=== PATIENT | female | born 1990 | race African-American/Black ===

== ENCOUNTER 2017-01-28 22:30 | Emergency (ER) | payer OTHER ==
--- NOTE | 2017-01-28 22:43 | DR.GENAD ---
HPI - Complaint/Symptoms Chief Complaint Doctors Comments: Patient states that she had similar pain in the past and diagnosie with gallstones recommended surigal removal but decline. Today pain was similar, severe, sharp, 10/10 associated with nausea. She denies dysuria, constipation or abdominal pain. Chief Complaint:: PT STATES THAT SHE BEGAN HAVING SEVERE RUQ PAIN THAT RADIATED TO HER BACK THIS AFTERNOON. GETTING WORSE. Self Treatment fo Chief Complaint: GIVEN 50 OF DEMEROL IM VIA EMS - Source History Provided: Patient - Mode of Arrival Mode of Arrival: EMS - Timing Onset of Chief Complaint: 01/28/17 PMH - PMH Past Medical History: Yes Past Medical History: Anemia Past Surgical History: Yes Surgical History: - Family History History of Family Medical Conditions: Yes Family Medical History: Hypertension - infectious screening Have you traveled outside the country in the last 6 months?: No ROS - Review of Systems Eyes: No Symptoms Reported ENTM: No Symptoms Reported, Hearing Loss Cardiovascular: No Symptoms Reported Gastrointestinal/Abdominal: No Symptoms Reported Genitourinary: No Symptoms Reported Neurological: No Symptoms Reported Musculoskeletal: No Symptoms Reported Integumentary: No Symptoms Reported Hematologic/Lymphatic: No Symptoms Reported Endocrine: No Symptoms Reported Psychiatric: No Symptoms Reported All Other Systems: Reviewed and Negative PE - Vital Signs Vitals: Temperature 97.9 F Pulse Rate 74 Respiratory Rate 18 Blood Pressure 128/71 O2 Sat by Pulse Oximetry 100 - General Limitations: No Limitations General Appearance: Alert, In No Apparent Distress - Head Head Exam: Normal Inspection, Atraumatic - Eyes Eye exam: Normal Appearance, PERRL, EOMI - ENT ENT Exam: Normal Exam, Normal Oropharynx External Ear Exam: Normal External Inspection TM/Canal Exam: Bilateral Normal Nose Exam: Normal Nose Exam Mouth Exam: Normal Inspection Throat Exam: Normal Inspection - Neck Neck Exam: Normal Inspection, Full ROM - Chest Chest Inspection: Normal Inspection, Symmetric Chest Wall Rise - Respiratory Respiratory Exam: Normal Lung Sounds Bilat Respiratory Exam: Bilateral Clear to Auscultation - Cardiovascular Cardiovascular Exam: Regular Rate, Normal Rhythm - Abdominal Exam Abdominal Exam: Normal Inspection, Normal Bowel Sounds Abdominal Tenderness: negative: RUQ, RLQ, LUQ, LLQ, Epigastrium, Suprapubic, Diffuse, Mild, Moderate, Severe, Other - Extremities Extremities Exam: Normal Inspection, Full ROM - Back Back Exam: Normal Inspection, Full ROM - Neurologic Neurological Exam: Alert, Oriented X3, CN II-XII Intact - Psychiatric Psychiatric Exam: Normal Affect - Skin Skin Exam: Warm, Dry, Normal Color Course - Reevaluation 1st: Improved ROR - Labs Reviewed Result Diagrams: 01/28/17 23:35 01/28/17 23:35 Laboratory: WBC 17.5 X10^3/uL (3.6-10.0) H 01/28/17 23:35 RBC 4.34 X10^6/uL (3.5-5.4) 01/28/17 23:35 Hgb 7.8 g/dL (12.0-16.0) L 01/28/17 23:35 Hct 26.3 % (36.0-47.0) L 01/28/17 23:35 MCV 60.5 fL (80.0-100.0) L 01/28/17 23:35 MCH 18.0 pg (27.0-34.0) L 01/28/17 23:35 MCHC 29.7 g/dL (33.0-35.0) L 01/28/17 23:35 RDW 17.9 % (11.6-16.5) H 01/28/17 23:35 Plt Count 251 X10^3/uL (150.0-450.0) 01/28/17 23:35 Plt Count Comment Adequate (ADEQUATE) 01/28/17 23:35 MPV 8.8 fL (7.4-11.0) 01/28/17 23:35 Neut % 81.4 % (42.0-75.0) H 01/28/17 23:35 Lymph % 12.1 % (21.0-51.0) L 01/28/17 23:35 Guthrie % 5.7 % (0.0-13.0) 01/28/17 23:35 Eos % 0.2 % (0.9-2.9) L 01/28/17 23:35 Baso % 0.6 % (0.2-1.0) 01/28/17 23:35 Neut # 14.3 x10^3/uL (2.2-4.8) H 01/28/17 23:35 Lymph # 2.1 X10^3/uL (1.3-2.9) 01/28/17 23:35 Guthrie # 1.0 x10^3/uL (0.3-0.8) H 01/28/17 23:35 Eos # 0.0 x10^3/uL (0.0-0.2) 01/28/17 23:35 Baso # 0.1 X10^3/uL (0.0-0.1) 01/28/17 23:35 Absolute Nucleated RBC 0.0 /100WBC 01/28/17 23:35 Plt Morphology Comment Normal (NORMAL) 01/28/17 23:35 RBC Morphology Abnormal (NORMAL) A 01/28/17 23:35 Hypochromasia 3+ A 01/28/17 23:35 Anisocytosis Slight A 01/28/17 23:35 Microcytosis 2+ A 01/28/17 23:35 Sodium 140 mmol/L (136-145) 01/28/17 23:35 Corrected Sodium TNP 01/28/17 23:35 Potassium 3.7 mmol/L (3.5-5.1) 01/28/17 23:35 Chloride 104 mmol/L (98-107) 01/28/17 23:35 Carbon Dioxide 26.8 mmol/L (21-32) 01/28/17 23:35 BUN 12 mg/dL (7-18) 01/28/17 23:35 Creatinine 0.74 mg/dL (0.55-1.02) 01/28/17 23:35 Est GFR (MDRD) Af Amer > 60 (>60) 01/28/17 23:35 Est GFR (MDRD) Non-Af > 60 (>60) 01/28/17 23:35 Glucose 79 mg/dL (65-99) 01/28/17 23:35 Calcium 8.8 mg/dL (8.5-10.1) 01/28/17 23:35 - XRAY XRAY Interpreted by: Radiologist (Given the limitations of lack of IV contrast administration the liever, spleen,pancreas, and adrenal glands are unremarkable in their CT appearance. k The gallbladder is nondistended however contains multiple large faceted gallstones. No pericholecystic fluid or bile duct dilatation. No evidence of stone within eigher kidney or ureter. No hydronephrosis is identified. No bowel wall thickening or bowel dilatation is present. The colon and rectum are unremarkable. The urinary bladder is grossly unremarkable. No mesenteric lymphadenopathy or stranding can be observed. There is moderate amount of pelvic free fluid. The appendix is normal. There may be a small cyst within the right adnexa. Impression: Cholelithiasis without CT evidence of acute cholecystitis. Moderater amoutn of pelvic free fluid is likely physiologic secondary to recent ovarian follicular cyst rupture/ovulation. There is a questionable cys within the right adnexa.) - Diagnosis Discharge Problem: Cholelithiasis Qualifiers: Cholelithiasis location: gallbladder and bile duct Cholecystitis presence: without cholecystitis Biliary obstruction: without biliary obstruction Qualified Code(s): K80.70 - Calculus of gallbladder and bile duct without cholecystitis without obstruction - Discharge Plan Condition: Stable - Follow ups/Referrals Follow ups/Referrals: SALAZAR MCGINNIS [Primary Care Provider] - 3 days - Instructions
[2017-01-28 22:45] VITALS: BP 128/71; BMI 39.3
[2017-01-28] MEDS ORDERED: ZOFRAN INJ 4 MG VIAL IVP ONE (22:46)
[2017-01-28] MEDS ORDERED: NS 1000 ML 1,000 ML IV ONE (22:46)
[2017-01-28] MEDS ORDERED: NS 1000 ML 1,000 ML ONE (22:48)
[2017-01-28] MEDS ORDERED: TORADOL 30 MG VIAL ONE (22:48)
[2017-01-28 23:50] LABS: BLOOD UREA NITROGEN 12 mg/dL (7-18); CALCIUM 8.8 mg/dL (8.5-10.1); CARBON DIOXIDE 26.8 mmol/L (21-32); CHLORIDE 104 mmol/L (98-107); CREATININE 0.74 mg/dL (0.55-1.02); SODIUM 140 mmol/L (136-145); eGFR BLACK RACES > 60 (>60); eGFR NON BLACK RACES > 60 (>60)
[2017-01-28 23:53] LABS: BASOPHILS # (AUTO) 0.1 X10^3/uL (0.0-0.1); BASOPHILS % (AUTO) 0.6 % (0.2-1.0); EOSINOPHILS % (AUTO) 0.2 % (0.9-2.9); HEMATOCRIT 26.3 % (36.0-47.0); HEMOGLOBIN 7.8 g/dL (12.0-16.0); LYMPHOCYTES # (AUTO) 2.1 X10^3/uL (1.3-2.9); LYMPHOCYTES % (AUTO) 12.1 % (21.0-51.0); MEAN CORPUSCULAR HGB CONC 29.7 g/dL (33.0-35.0); MEAN CORPUSCULAR VOLUME 60.5 fL (80.0-100.0); MEAN PLATELET VOLUME 8.8 fL (7.4-11.0); MONOCYTES % (AUTO) 5.7 % (0.0-13.0); NEUTROPHILS # (AUTO) 14.3 x10^3/uL (2.2-4.8); NEUTROPHILS % (AUTO) 81.4 % (42.0-75.0); PLATELET COUNT 251 X10^3/uL (150.0-450.0); RED BLOOD COUNT 4.34 X10^6/uL (3.5-5.4); RED CELL DISTRIBUTION WIDTH 17.9 % (11.6-16.5); WHITE BLOOD COUNT 17.5 X10^3/uL (3.6-10.0)
[2017-01-29 00:01] LABS: ANISOCYTOSIS SLIGHT; HYPOCHROMASIA 3+; MICROCYTOSIS 2+; PLATELET MORPHOLOGY COMMENT NORMAL (NORMAL)
[2017-01-29] MEDS ORDERED: TORADOL 60 MG VIAL IM ONE (00:04)
[2017-01-29] MEDS ORDERED: TORADOL 30 MG VIAL ONE (00:06)
--- NOTE | 2017-01-29 00:56 | CT ---
CT abdomen and pelvis without contrast Indication: Severe right upper quadrant pain Comparison: none available Technique: Multiple axial images of the abdomen and pelvis were obtained from the lung bases to the pubic symphy sis without the administration of IV contrast. Coronal and sagittal images were also provided. Radiation dose reduction techniques were performed utilizing adjustment for MA/kVP based on patient body size. Findings: The visualized portions of the lung bases are unremarkable. The bony structures are grossly intact. Given the limitations of lack of IV contrast administration the liver, spleen, pancreas, and adrenal glands are unremarkable in their CT appearance. The gallbladder is nondistended however contains mult iple large faceted gallstones. No pericholecystic fluid or bile duct dilatation. No evidence of stone within either kidney or ureter. No hydronephrosis is identified. No bowel wall thickening or bowel dilatation is present. The colon and rectum are unremarkable. The urinary bladder is grossly unremarkable. No mesenteric lymphadenopathy or stranding can be observed. There is moderate amount of pelvic free f luid. The appendix is normal. There may be a small cyst within the right adnexa. IMPRESSION: 1. Cholelithiasis without CT evidence of acute cholecystitis. 2. Moderate amount of pelvic free fluid is likely physiologic secondary to recent ovarian follicular cyst rupture/ovulation. There is a questionable cyst within the right adnexa. Reported By:
[2017-01-30] MEDS ORDERED: TORADOL 60 MG VIAL IM ONE (19:26)
== END 2017-01-29 01:20 | disposition home or self-care (01) ==
LOC: ER 22:30
DX: K80.70 Calculus of gallbladder and bile duct without cholecystitis without obstruction (principal); R10.11 Right upper quadrant pain
CPT/HCPCS: 36415; 74176; 80048; 85025; 96372; 99282; 99283; A4222; J1885